=== PATIENT | female | born 1950 | race Caucasian/White ===

== ENCOUNTER 2017-12-02 16:10 | Emergency (ER) | payer OTHER, BC ==
[2017-12-02 16:20] VITALS: BMI 32.9
[2017-12-02] MEDS ORDERED: SODIUM CHLORIDE 1,000 ML IV STA (16:33)
[2017-12-02] MEDS ORDERED: ACETAMINOPHEN 1000 MG/100 ML VIAL (NON FORMULARY) IVPB ONE (16:33)
--- NOTE | 2017-12-02 16:47 | PDOC ---
History of Present Illness - General Chief Complaint: Pain Stated Complaint: ABD PAIN, DIARRHEA Time Seen by Provider: 12/02/17 16:15 - History of Present Illness Initial Comments: 12/02/17 16:47 "Patient is a 67 F, with PMHx of diverticulitis, chronic anemia, and hiatal hernia, who presents with abdominal pain and diarrhea. Patient states that she began to feel ill 5 days ago when she felt like she over ate. She reports vomiting once, which relieved her symptoms. This morning at around 4am she woke up with stomach cramps accompanied by multiple bouts of nonbloody diarrhea. Pt states that her symptoms are similar to what she experienced during a previous episode of her diverticulitis. She has an appointment tomorrow for a colonoscopy and endoscopy as part of her work up for iron deficiency anemia. She denies hematuria, hematochezia, or melena. PCP: Jamey Stevens " Past History - Past Medical History Allergies/Adverse Reactions: Allergies Allergy/AdvReac Type Severity Reaction Status Date / Time No Known Allergies Allergy Unverified 04/13/15 08:41 Anemia: Yes COPD: No GI Disorders: Yes (DIVERTICULITIS, GERD) - Surgical History Cholecystectomy: Yes - Suicide/Smoking/Psychosocial Hx Smoking History: Never smoked Hx Alcohol Use: (occasional) Review of Systems - Review of Systems Comments:: 12/02/17 16:49 "GENERAL/CONSTITUTIONAL: + fever (100.8) or chills. No weakness. HEAD, EYES, EARS, NOSE AND THROAT: No change in vision. No ear pain or discharge. No sore throat. CARDIOVASCULAR: No chest pain or shortness of breath. RESPIRATORY: No cough, wheezing, or hemoptysis. GASTROINTESTINAL: +LLQ pain, +vomiting (1x) , +diarrhea. No nausea. No constipation. GENITOURINARY: No dysuria, frequency, or change in urination. MUSCULOSKELETAL: No joint or muscle swelling or pain. No neck or back pain. SKIN: No rash NEUROLOGIC: No headache, vertigo, loss of consciousness, or change in strength/ sensation. ENDOCRINE: No increased thirst. No abnormal weight change. HEMATOLOGIC/LYMPHATIC: No anemia, easy bleeding, or history of blood clots. ALLERGIC/IMMUNOLOGIC: No hives or skin allergy. " *Physical Exam - Vital Signs Last Vital Signs Temp Pulse Resp BP Pulse Ox 100.8 F H 89 18 173/93 100 12/02/17 16:10 12/02/17 16:10 12/02/17 16:10 12/02/17 16:10 12/02/17 16:10 - Physical Exam Comments: 12/02/17 16:50 "GENERAL: Awake, alert, and fully oriented, in no acute distress HEAD: No signs of trauma EYES: PERRLA, EOMI, sclera anicteric, conjunctiva clear ENT: Auricles normal inspection, hearing grossly normal, nares patent, oropharynx clear without exudates. Moist mucosa NECK: Nontender, no stepoffs, Normal ROM, supple, no lymphadenopathy, JVD, or masses LUNGS: Breath sounds equal, clear to auscultation bilaterally. No wheezes, and no crackles HEART: Regular rate and rhythm, normal S1 and S2, no murmurs, rubs or gallops ABDOMEN: + LLQ tenderness. No guarding, no rebound. No masses EXTREMITIES: Normal range of motion, no edema. No clubbing or cyanosis. No cords, erythema, or tenderness NEUROLOGICAL: Cranial nerves II through XII intact. 5/5 strength and sensation in all extremities, Normal speech, normal gait, normal cerebellar function SKIN: Warm, Dry, normal turgor, no rashes or lesions noted. " ED Treatment Course - LABORATORY CBC & Chemistry Diagram: 12/02/17 16:40 12/02/17 16:40 - RADIOLOGY Radiology Studies Ordered: Category Date Time Status ABDOMEN & PELVIS CT WITH CONTR [CT] Stat CT Scan 12/02/17 16:29 Ordered Medical Decision Making - Medical Decision Making 12/02/17 16:34 67 F with LLQ pain, diarrhea. Found to have fever in ER 100.8. Likely diverticulitis. Also consider viral gastroenteritis. - Labs - CTAP - IVF, tylenol 12/02/17 18:55 CBC,CMP WBC 7.2 K/mm3 (4.0-10.8) 12/02/17 16:40 RBC 4.02 M/mm3 (3.60-5.2) 12/02/17 16:40 Hgb 11.7 GM/dl (10.7-15.3) 12/02/17 16:40 Hct 34.5 % (32.4-45.2) 12/02/17 16:40 MCV 85.8 fl (80-96) 12/02/17 16:40 MCH 29.0 pg (25.7-33.7) 12/02/17 16:40 MCHC 33.9 g/dl (32.0-36.0) 12/02/17 16:40 RDW 17.3 % (11.6-15.6) H 12/02/17 16:40 Plt Count 167 K/MM3 (134-434) 12/02/17 16:40 MPV 11.0 fl (7.5-11.1) 12/02/17 16:40 Neutrophils % 81.4 % (42.8-82.8) 12/02/17 16:40 Lymphocytes % 13.4 % (8-40) 12/02/17 16:40 Monocytes % 4.6 % (3.8-10.2) 12/02/17 16:40 Eosinophils % 0.3 % (0-4.5) 12/02/17 16:40 Basophils % 0.3 % (0-2.0) 12/02/17 16:40 Sodium 134 mmol/L (136-145) L 12/02/17 16:40 Potassium 3.5 mmol/L (3.5-5.1) 12/02/17 16:40 Chloride 101 mmol/L (98-107) 12/02/17 16:40 Carbon Dioxide 27 mmol/L (22-28) 12/02/17 16:40 Anion Gap 6 (8-16) L 12/02/17 16:40 BUN 8 mg/dl (7-18) 12/02/17 16:40 Creatinine 0.5 mg/dl (0.6-1.3) L 12/02/17 16:40 Creat Clearance w eGFR > 60 (>60) 12/02/17 16:40 Random Glucose 99 mg/dl (74-106) 12/02/17 16:40 Calcium 8.7 mg/dl (8.4-10.2) 12/02/17 16:40 Total Bilirubin 0.5 mg/dl (0.2-1.0) 12/02/17 16:40 AST 21 U/L (10-42) 12/02/17 16:40 ALT 17 U/L (10-40) 12/02/17 16:40 Alkaline Phosphatase 74 U/L (32-92) 12/02/17 16:40 Total Protein 6.4 g/dl (6.4-8.3) 12/02/17 16:40 Albumin 3.5 g/dl (3.5-5.0) 12/02/17 16:40 Lipase 122 U/L (73-393) 12/02/17 16:40 Pt signed out to oncoming attending at 7pm, pending CT results, repeat vitals, and re-evaluation. Case discussed in detail with oncoming Emergency Physician including history, physical exam and ancillary studies. Oncoming Emergency Physician has assumed care for the patient and will complete the evaluation and treatment. Patient is aware of the plan. *DC/Admit/Observation/Transfer - Discharge Dispostion Condition at time of disposition: Stable - Referrals Referrals: Jamey Stevens MD [Primary Care Provider] - - Patient Instructions - Post Discharge Activity
[2017-12-02] MEDS ORDERED: ACETAMINOPHEN INJECTION 100 ML IVPB ONE (16:49)
[2017-12-02 16:54] LABS: BASO % 0.3 % (0-2.0); EOS % 0.3 % (0-4.5); HEMATOCRIT 34.5 % (32.4-45.2); HEMOGLOBIN 11.7 GM/dl (10.7-15.3); LYMPH % 13.4 % (8-40); MCHC 33.9 g/dl (32.0-36.0); MEAN CELL VOLUME 85.8 fl (80-96); MONO % 4.6 % (3.8-10.2); NEUT % 81.4 % (42.8-82.8); PLATELET COUNT 167 K/MM3 (134-434); RBC 4.02 M/mm3 (3.60-5.2); RDW 17.3 % (11.6-15.6); WHITE BLOOD COUNT 7.2 K/mm3 (4.0-10.8)
[2017-12-02 17:05] LABS: ACTIVATED PTT 24.4 SECONDS (24.0-38.9)
[2017-12-02 17:07] LABS: ALBUMIN 3.5 g/dl (3.5-5.0); ALK PHOS 74 U/L (32-92); ANION GAP 6 (8-16); BLOOD UREA NITROGEN 8 mg/dl (7-18); CALCIUM 8.7 mg/dl (8.4-10.2); CHLORIDE 101 mmol/L (98-107); CO2 27 mmol/L (22-28); GLUCOSE,RANDOM 99 mg/dl (74-106); POTASSIUM 3.5 mmol/L (3.5-5.1); SGOT/AST 21 U/L (10-42); SGPT/ALT 17 U/L (10-40); SODIUM 134 mmol/L (136-145); TOT PROT 6.4 g/dl (6.4-8.3)
[2017-12-02 17:09] LABS: INR 1.1 (0.82-1.09); PROTHROMBIN TIME (PATIENT) 12.3 SEC (10.2-13.0)
[2017-12-02 17:17] LABS: BILIRUBIN,TOTAL 0.5 mg/dl (0.2-1.0); CREATININE 0.5 mg/dl (0.6-1.3)
[2017-12-02 17:38] LABS: URINE APPEARANCE Clear; URINE BILIRUBIN Negative (NEGATIVE); URINE GLUCOSE (UA) Negative (NEGATIVE); URINE KETONE Negative (NEGATIVE); URINE LEUK ESTERASE Negative (NEGATIVE); URINE NITRITE Negative (NEGATIVE); URINE PROTEIN Negative (NEGATIVE); URINE UROBILINOGEN 0.2 (0.2-1.0)
[2017-12-02 17:41] LABS: URINE BLOOD Trace-lysed (NEGATIVE); URINE COLOR YELLOW
[2017-12-02 18:03] LABS: URINE BACTERIA FEW /hpf (NEGATIVE); URINE WBC 0-2 (0-5)
--- NOTE | 2017-12-02 19:32 | PDOC ---
*Physical Exam - Vital Signs Last Vital Signs Temp Pulse Resp BP Pulse Ox 99.6 F 89 18 173/93 100 12/02/17 17:44 12/02/17 16:10 12/02/17 16:10 12/02/17 16:10 12/02/17 16:10 <Carlita Sanchez - Last Filed: 12/02/17 20:03> - Vital Signs Last Vital Signs Temp Pulse Resp BP Pulse Ox 99.6 F 89 18 173/93 100 12/02/17 17:44 12/02/17 16:10 12/02/17 16:10 12/02/17 16:10 12/02/17 16:10 <Riki Craias I - Last Filed: 12/02/17 20:18> ED Treatment Course - LABORATORY CBC & Chemistry Diagram: 12/02/17 16:40 12/02/17 16:40 - ADDITIONAL ORDERS Additional order review: Laboratory Results 12/02/17 12/02/17 12/02/17 17:34 16:40 16:40 PT with INR INR PTT (Actin FS) Sodium Potassium Chloride Carbon Dioxide Anion Gap BUN Creatinine Creat Clearance w eGFR Random Glucose Calcium Total Bilirubin AST ALT Alkaline Phosphatase Total Protein Albumin Lipase 122 Urine Color Yellow Urine Appearance Clear Urine pH 6.0 Ur Specific [place] 1.010 Urine Protein Negative Urine Glucose (UA) Negative Urine Ketones Negative Urine Blood Trace-lysed H Urine Nitrite Negative Urine Bilirubin Negative Urine Urobilinogen 0.2 Ur Leukocyte Esterase Negative Urine RBC 2-4 Urine WBC 0-2 Urine Bacteria Few Blood Type A POSITIVE Antibody Screen Negative 12/02/17 12/02/17 16:40 16:40 PT with INR 12.3 INR 1.10 PTT (Actin FS) 24.4 L Sodium 134 L Potassium 3.5 Chloride 101 Carbon Dioxide 27 Anion Gap 6 L BUN 8 Creatinine 0.5 L Creat Clearance w eGFR > 60 Random Glucose 99 Calcium 8.7 Total Bilirubin 0.5 AST 21 ALT 17 Alkaline Phosphatase 74 Total Protein 6.4 Albumin 3.5 Lipase Urine Color Urine Appearance Urine pH Ur Specific [place] Urine Protein Urine Glucose (UA) Urine Ketones Urine Blood Urine Nitrite Urine Bilirubin Urine Urobilinogen Ur Leukocyte Esterase Urine RBC Urine WBC Urine Bacteria Blood Type Antibody Screen 12/02/17 16:40 RBC 4.02 MCV 85.8 MCHC 33.9 RDW 17.3 H MPV 11.0 Neutrophils % 81.4 Lymphocytes % 13.4 Monocytes % 4.6 Eosinophils % 0.3 Basophils % 0.3 - RADIOLOGY Radiograph Interpretation: Abdomen/Pelvis CT Impression: Acute sigmoid diverticulitis is noted Several small hypodense foci are noted within the inflamed sigmoid wall which may represent intramural abscesses. No pericolonic abscess is visualized. Status post cholecystectomy. Large hiatal hernia. Small umbilical hernia containing fat only. Reported by: Qamar Rice MD 12/02/171937 - Medications Given in the ED: ED Medications Discontinued Medications Generic Name Dose Route Start Last Admin Trade Name Freq PRN Reason Stop Dose Admin Acetaminophen 1,000 mg 12/02/17 16:33 12/02/17 16:55 Ofirmev Injection - IVPB 12/02/17 16:34 1,000 mg ONCE ONE Administration Sodium Chloride 1,000 mls @ 1,000 mls/hr 12/02/17 16:33 12/02/17 16:45 Normal Saline - IV 12/02/17 17:32 1,000 mls/hr ASDIR STA Administration <Carlita Sanchez - Last Filed: 12/02/17 20:03> - LABORATORY CBC & Chemistry Diagram: 12/02/17 16:40 12/02/17 16:40 - ADDITIONAL ORDERS Additional order review: Laboratory Results 12/02/17 12/02/17 12/02/17 17:34 16:40 16:40 PT with INR INR PTT (Actin FS) Sodium Potassium Chloride Carbon Dioxide Anion Gap BUN Creatinine Creat Clearance w eGFR Random Glucose Calcium Total Bilirubin AST ALT Alkaline Phosphatase Total Protein Albumin Lipase 122 Urine Color Yellow Urine Appearance Clear Urine pH 6.0 Ur Specific [place] 1.010 Urine Protein Negative Urine Glucose (UA) Negative Urine Ketones Negative Urine Blood Trace-lysed H Urine Nitrite Negative Urine Bilirubin Negative Urine Urobilinogen 0.2 Ur Leukocyte Esterase Negative Urine RBC 2-4 Urine WBC 0-2 Urine Bacteria Few Blood Type A POSITIVE Antibody Screen Negative 12/02/17 12/02/17 16:40 16:40 PT with INR 12.3 INR 1.10 PTT (Actin FS) 24.4 L Sodium 134 L Potassium 3.5 Chloride 101 Carbon Dioxide 27 Anion Gap 6 L BUN 8 Creatinine 0.5 L Creat Clearance w eGFR > 60 Random Glucose 99 Calcium 8.7 Total Bilirubin 0.5 AST 21 ALT 17 Alkaline Phosphatase 74 Total Protein 6.4 Albumin 3.5 Lipase Urine Color Urine Appearance Urine pH Ur Specific [place] Urine Protein Urine Glucose (UA) Urine Ketones Urine Blood Urine Nitrite Urine Bilirubin Urine Urobilinogen Ur Leukocyte Esterase Urine RBC Urine WBC Urine Bacteria Blood Type Antibody Screen 12/02/17 16:40 RBC 4.02 MCV 85.8 MCHC 33.9 RDW 17.3 H MPV 11.0 Neutrophils % 81.4 Lymphocytes % 13.4 Monocytes % 4.6 Eosinophils % 0.3 Basophils % 0.3 - Medications Given in the ED: ED Medications Discontinued Medications Generic Name Dose Route Start Last Admin Trade Name Freq PRN Reason Stop Dose Admin Acetaminophen 1,000 mg 12/02/17 16:33 12/02/17 16:55 Ofirmev Injection - IVPB 12/02/17 16:34 1,000 mg ONCE ONE Administration Sodium Chloride 1,000 mls @ 1,000 mls/hr 12/02/17 16:33 12/02/17 16:45 Normal Saline - IV 12/02/17 17:32 1,000 mls/hr ASDIR STA Administration <Riki Carias I - Last Filed: 12/02/17 20:18> Progress Note - Progress Note Progress Note: Care of this patient was transferred to or from Dr. Palencia at 1900 hrs. This is a 67-year-old female who has a history significant for diverticulitis. Patient comes in complaining of left lower quadrant pain with some diarrhea. Patient said pain is similar to what she's had in the past with her diverticulitis. Patient was noted to have a low-grade fever here in the emergency room Patient's CAT scan of her abdomen is still pending however the rest of her workup is back including a normal white count with no left shift and normal chemistries Well reassessed and follow-up on the CAT scan. 20:15 Reassessment patient remains unchanged. Patient was asked if she would like some pain medication which she does not feel she needs at this point. Patient's CAT scan came back it does show acute diverticulitis as well as several small intramural abscesses. There is no evidence of perforation. Patient has a normal white count Patient is able to tolerate by mouth's Discussed with the surgeon Dr. Diaz who recommends that the patient to be given IV antibiotics and discharged home on by mouth antibiotics and follow up with her GI. Patient does have a GI doctor and was scheduled for a colonoscopy for tomorrow Patient given IV Levaquin and Flagyl here in the emergency room and will be discharged on by mouth Levaquin and Flagyl <Riki Carias I - Last Filed: 12/02/17 20:18> *DC/Admit/Observation/Transfer <LauraCarlita - Last Filed: 12/02/17 20:03> - Discharge Dispostion Admit: No <Riki Carias I - Last Filed: 12/02/17 20:18> Diagnosis at time of Disposition: Diverticulitis - Discharge Dispostion Disposition: HOME Condition at time of disposition: Stable - Referrals Referrals: Jamey Stevens MD [Primary Care Provider] - - Patient Instructions Printed Discharge Instructions: DI for Diverticulitis Additional Instructions: Take Levaquin 1 tablet a day for the next 10 days. Take Flagyl 1 tablet twice a day for the next 10 days. A diverticulitis diet is recommend as part of a short-term treatment plan for acute diverticulitis. Diverticula are small, bulging pouches that can form in the lining of the digestive system. They're found most often in the lower part of the large intestine (colon). This condition is called diverticulosis. In some cases, one or more of the pouches become inflamed or infected. This is known as diverticulitis. Mild cases of diverticulitis are usually treated with antibiotics and a diverticulitis diet, which includes clear liquids and low-fiber foods. More- severe cases typically require hospitalization. A diverticulitis diet is a temporary measure to give your digestive system a chance to rest. Oral intake is usually reduced until bleeding and diarrhea subside. A diverticulitis diet starts with only clear liquids for a few days. Examples of items allowed on a clear liquid diet include: Broth Fruit juices without pulp, such as apple juice Ice chips Ice pops without bits of fruit or fruit pulp Gelatin Water Tea or coffee without cream As you start feeling better, your doctor will recommend that you slowly add low- fiber foods. Examples of low-fiber foods include: Canned or cooked fruits without skin or seeds Canned or cooked vegetables such as green beans, carrots and potatoes (without the skin) Eggs, fish and poultry Refined white bread Fruit and vegetable juice with no pulp Low-fiber cereals Milk, yogurt and cheese eat yogurt at least once a day as it will help replenish the healthy bacteria in your intestines that the antibiotics kill. White rice, pasta and noodles You should feel better within two or three days of starting the diet and antibiotics. If you haven't started feeling better by then, call your doctor. Also contact your doctor if: You develop a fever Your abdominal pain is worsening You're unable to keep clear liquids down These may indicate a complication that requires hospitalization. The diverticulitis diet has few risks. However, continuing a clear liquid diet for more than a few days can lead to weakness and other complications, since it doesn't provide enough of the nutrients your body needs. For this reason, I recommend you to transition to the low fiber diet as soon as you can tolerate it and then back to a normal diet once you finish the antibiotics. - Post Discharge Activity
[2017-12-02 21:24] VITALS: BP 147/65; PULSE 71; TEMP 98.5
== END 2017-12-02 21:25 | disposition home or self-care (01) ==
LOC: FER 16:10
PROC: 3E03329 Introduction of Other Anti-infective into Peripheral Vein, Percutaneous Approach (ICD-10-PCS; principal; 2017-12-02)
PROC: 3E033GC Introduction of Other Therapeutic Substance into Peripheral Vein, Percutaneous Approach (ICD-10-PCS; 2017-12-02)
DX: K57.92 Diverticulitis of intestine, part unspecified, without perforation or abscess without bleeding (principal); D64.9 Anemia, unspecified; K44.9 Diaphragmatic hernia without obstruction or gangrene; K21.9 Gastro-esophageal reflux disease without esophagitis
CPT/HCPCS: 36415; 74177-TC; 80053; 81003; 81015; 83690; 85025; 85610; 85730; 86850; 86900; 86901; 96361; 96365; 96368; 99285-25

== ENCOUNTER 2019-12-02 15:00 | Emergency (ER) | payer OTHER, BC ==
--- NOTE | 2019-12-02 15:04 | PDOC ---
History of Present Illness - General Chief Complaint: Pain Stated Complaint: ABD PAIN History Source: Patient Exam Limitations: No Limitations - History of Present Illness Initial Comments: 69 yo F with a hx of diverticulitis and chronic anemia presents to the emergency department with LLQ pain that has been ongoing since yesterday. Per the patient, she was cooking in her kitchen when she felt a sudden onset of LLQ pain consistent with her previous episode of diverticulitis in 2018. The patient describes the pain as a dull ache, intermittent in duration, radiates to the lower left flank, and does not have aggravating or relieving factors. The patient endorses nausea with dry heaving vomiting without production. Endorses subjective fevers. Endorses constipation for the past 3 days. Allergies: NKDA Past History - Past Medical History Allergies/Adverse Reactions: Allergies Allergy/AdvReac Type Severity Reaction Status Date / Time No Known Allergies Allergy Verified 12/02/19 15:03 Home Medications: Ambulatory Orders NK [No Known Home Medication] 12/02/19 Anemia: Yes COPD: No GI Disorders: Yes (DIVERTICULITIS, GERD) - Surgical History Cholecystectomy: Yes - Psycho Social/Smoking Cessation Hx Smoking History: Never smoked Have you smoked in the past 12 months: No Hx Alcohol Use: (occasional) Drug/Substance Use Hx: No Substance Use Type: None Review of Systems - Review of Systems Able to Perform ROS?: Yes Is the patient limited Azeri proficient: No Constitutional: Yes: Fever. No: Chills, Diaphoresis, Weakness HEENTM: No: Eye Pain, Ear Pain, Nose Pain, Throat Pain, Mouth Pain Respiratory: No: Cough, Shortness of Breath, Hemoptysis Cardiac (ROS): No: Chest Pain, Lightheadedness, Palpitations, Chest Tightness ABD/GI: Yes: Constipated, Nausea, Vomiting, Abdominal cramping. No: Diarrhea, Rectal Bleeding, Tarry Stools : No: Burning, Dysuria, Hematuria, Incontinence Musculoskeletal: No: Back Pain, Muscle Pain, Neck Pain Integumentary: No: Bruising, Flushing, Lesions, Rash Neurological: No: Headache, Numbness, Tingling, Tremors Psychiatric: No: Change in Appetite Endocrine: No: Unexplained Weight Loss Hematologic/Lymphatic: No: Anemia *Physical Exam - Physical Exam General Appearance: Yes: Nourished, Appropriately Dressed. No: Apparent Distress, Intoxicated HEENT: positive: EOMI, AGGIE, Normal ENT Inspection, Normal Voice, Symmetrical, TMs Normal, Pharynx Normal, Hearing Grossly Normal. negative: Pale Conjunctivae , Scleral Icterus (R), Scleral Icterus (L), Muffled/Hoarse voice, Pharyngeal Erythema, Tonsillar Exudate, Tonsillar Erythema, Rhinorrhea, Sinus Tenderness, Excessive drooling Neck: positive: Trachea midline, Supple. negative: Tender, Lymphadenopathy (R) , Lymphadenopathy (L), Tender lateral, Tender midline Respiratory/Chest: positive: Lungs Clear, Normal Breath Sounds. negative: Chest Tender, Respiratory Distress, Accessory Muscle Use, Rales, Rhonchi, Stridor, Wheezing, Hyperresonant Cardiovascular: positive: Regular Rhythm, Regular Rate, S1, S2. negative: Systolic Murmur Gastrointestinal/Abdominal: positive: Normal Bowel Sounds, Tender (LLQ), Flat, Soft. negative: Protuberent, Distended, Guarding, Rebound Lymphatic: negative: Adenopathy Musculoskeletal: positive: Normal Inspection. negative: CVA Tenderness, Vertebral Tenderness Extremity: positive: Normal Capillary Refill, Normal Inspection, Normal Range of Motion. negative: Tender, Cyanosis, Swelling, Calf Tenderness, Erythema Integumentary: positive: Normal Color, Dry, Warm. negative: Clammy, Diaphoresis , Swelling, Ecchymosis Neurologic: positive: microstrategy bi developer II-XII NML intact, Fully Oriented, Alert, Normal Mood/ Affect, Normal Response, Motor Strength 5/5. negative: EOM Palsy, Facial Droop , Sensory Deficit, Finger to Nose ED Treatment Course - LABORATORY CBC & Chemistry Diagram: 12/02/19 15:30 12/02/19 16:10 Medical Decision Making - Medical Decision Making 69 yo F with a hx of diverticulitis and chronic anemia presents to the emergency department with LLQ pain that has been ongoing since yesterday. Initial vitals Initial Vital Signs Temp Pulse Resp BP Pulse Ox 99.7 F H 72 18 162/73 98 12/02/19 15:00 12/02/19 15:00 12/02/19 15:00 12/02/19 15:00 12/02/19 15:00 Work up: ddx: patient presents with LLQ with mild tenderness currently afebrile and per the patient is similar in pain to her previous episodes of diverticulitis. Will obtain cbc, cmp, lactic acid, ua, urine culture ddx: diverticulitis vs colitis vs UTI vs nephrolithiasis vs msk pain Laboratory Tests 12/02/19 12/02/19 12/02/19 15:30 15:30 15:30 WBC 7.8 RBC 4.58 Hgb 14.1 Hct 42.0 D MCV 91.7 MCH 30.7 D MCHC 33.5 RDW 11.9 D Plt Count 213 MPV 12.1 H Absolute Neuts (auto) 5.9 Neutrophils % 76.2 Lymphocytes % 17.7 Monocytes % 5.4 Eosinophils % 0.2 Basophils % 0.5 PT with INR 12.5 INR 1.12 Sodium Potassium Chloride Carbon Dioxide Anion Gap BUN Creatinine Est GFR (CKD-EPI)AfAm Est GFR (CKD-EPI)NonAf Random Glucose Lactic Acid 1.5 Calcium Total Bilirubin AST ALT Alkaline Phosphatase Total Protein Albumin Urine Color Urine Appearance Urine pH Urine Protein Urine Glucose (UA) Urine Ketones Urine Blood Urine Nitrite Urine Bilirubin Urine Urobilinogen Ur Leukocyte Esterase Urine RBC Urine WBC Ur Transition Epith Cell Urine Bacteria 12/02/19 12/02/19 15:30 16:10 WBC RBC Hgb Hct MCV MCH MCHC RDW Plt Count MPV Absolute Neuts (auto) Neutrophils % Lymphocytes % Monocytes % Eosinophils % Basophils % PT with INR INR Sodium 135 L Potassium 4.1 Chloride 103 Carbon Dioxide 27 Anion Gap 5 L BUN 12.0 Creatinine 0.8 Est GFR (CKD-EPI)AfAm 85.97 Est GFR (CKD-EPI)NonAf 74.17 Random Glucose 106 Lactic Acid Calcium 8.9 Total Bilirubin 1.2 H AST 19 ALT 20 Alkaline Phosphatase 91 Total Protein 6.7 Albumin 3.8 Urine Color Yellow Urine Appearance Clear Urine pH 7.0 Urine Protein Negative Urine Glucose (UA) Negative Urine Ketones Negative Urine Blood 2+ H Urine Nitrite Negative Urine Bilirubin Negative Urine Urobilinogen 0.2 Ur Leukocyte Esterase 1+ Urine RBC 20-30 Urine WBC 10-20 Ur Transition Epith Cell Few Urine Bacteria Moderate Patient denies dysuria, increased urinary frequency, urinary urgency, burning in urine, and hematuria. UA shows increased wbc 10-20 with moderate bacteria with 2+ blood with positive leuk est with negative nitrite. Patient is asymptomatic, likely asymptomatic bacturia, however a culture will be drawn to determine presence of infection. Patient likely is having nephrolithiasis. A spiral renal stone CT was ordered. CT shows 2 mm at the UVJ with mild hydro on the left kidney. Patient is afebrile, without white count, negative lactic acid, and with asymptomatic bacturia. Patient was advised to treat pain with ibuprofen and to follow up with the urologist within 1 week after discharge for follow up. The patient was advised to return to the emergency department if she develops fevers , dysuria, or ascending flank pain. Patient agrees to this plan. Pain was resolved with 1 gram of tylenol. Patient was discharged. Pending culture. Discharge - Discharge Information Problems reviewed: Yes Clinical Impression/Diagnosis: Kidney stone Condition: Stable Disposition: HOME - Admission No - Follow up/Referral Referrals: Salina Arita MD [Primary Care Provider] - Kayden Khan MD [Staff Physician] - - Patient Discharge Instructions Patient Printed Discharge Instructions: Kidney Stones -- Adult Additional Instructions: You were seen for abdominal pain that was a kidney stone Please follow up with the urologist within 1 week after discharge Please use motrin for pain as directed on label We will call if you culture indicates you have an infection Please return to the emergency department if you have worsening symptoms or new concerning symptoms such as burning urination, pain in the left flank, and fevers., Thank you. - Post Discharge Activity
[2019-12-02 15:06] VITALS: BP 162/73; PULSE 72; BMI 29.2
[2019-12-02] MEDS ORDERED: ACETAMINOPHEN 1000 MG/100 ML VIAL (NON FORMULARY) IVPB ONE (15:27)
[2019-12-02] MEDS ORDERED: SODIUM CHLORIDE 1,000 ML IV STA (15:27)
[2019-12-02] MEDS ORDERED: ACETAMINOPHEN INJECTION 100 ML IVPB ONE (15:42)
[2019-12-02 15:53] LABS: INR 1.12 (0.82-1.09); PROTHROMBIN TIME (PATIENT) 12.5 SEC (10.2-13.0)
[2019-12-02 15:54] LABS: BASO % 0.5 % (0-2.0); EOS % 0.2 % (0-4.5); HEMOGLOBIN 14.1 GM/dl (10.7-15.3); LYMPH % 17.7 % (8-40); MCH 30.7 pg (25.7-33.7); MCHC 33.5 g/dl (32.0-36.0); MEAN CELL VOLUME 91.7 fl (80-96); MEAN PLT VOLUME 12.1 fl (7.5-11.1); MONO % 5.4 % (3.8-10.2); NEUT % 76.2 % (42.8-82.8); PLATELET COUNT 213 K/MM3 (134-434); RBC 4.58 M/mm3 (3.60-5.2); RDW 11.9 % (11.6-15.6); WHITE BLOOD COUNT 7.8 K/mm3 (4.0-10.8)
[2019-12-02 16:30] LABS: EPITHELIAL CELLS FEW /hpf
[2019-12-02 16:31] LABS: ALBUMIN 3.8 g/dl (3.4-5.0); BILIRUBIN,TOTAL 1.2 mg/dl (0.2-1); CALCIUM 8.9 mg/dl (8.5-10); CREATININE 0.8 mg/dl (0.55-1.3); POTASSIUM 4.1 mmol/L (3.5-5.1); TOT PROT 6.7 g/dl (6.4-8.2)
--- NOTE | 2019-12-02 17:12 | PDOC ---
Attending Attestation - Resident Resident Name: Tk Galindo - HPI HPI: 12/02/19 17:08 Left flank and left lower quadrant pain for 2 days. Nausea and retching yesterday. Pain is intermittent. Normal bowel movements. No urinary tract symptoms such as dysuria frequency urgency hesitancy or hematuria. No vaginal bleeding or discharge. History of one episode of diverticulitis several years ago, managed medically. - Physicial Exam PE: 12/02/19 17:09 Physical exam: No pain at present. Afebrile, vital signs normal No pallor or icterus. HEENT normal Neck supple without bruit mass or nodes Chest clear CV regular without murmur rub or gallop Abdomen nondistended, bowel sounds normal. Soft without mass tenderness organomegaly. Specifically, there is no appreciable tenderness in the left lower quadrant or pelvic region that would be expected with diverticulitis Neurological intact Impression: Left lower quadrant/left pelvic pain, rule out occult diverticulitis , colitis, gynecologic/ovarian disease, UTI, renal colic Plan: CBC, chemistries, urinalysis, further evaluation and imaging depending on results. Urine with blood. CBC and chemistries without significant abnormalities. Specifically, normal white blood count. Normal differential. This together with benign abdominal exam suggests renal colic, especially with the nausea and retching. CT pending. - Medical Decision Making 12/02/19 19:04 Assessment: CT is positive for stone at the UV junction, mild hydronephrosis. No definite signs of UTI Plan: Fluids and analgesics, check culture results in 24 to 48 hours, follow-up urologist. Return to ER if pain uncontrolled. Fully ambulatory and in no significant pain or other distress at discharge to follow-up as directed 12/02/19 19:08
[2019-12-02 19:07] VITALS: TEMP 99
--- NOTE | 2019-12-04 12:21 | PDOC ---
Patient Follow-up (Call Back) - Post ED Follow - Up Condition at time of discharge: Stable Disposition at time of original discharge: HOME - Disposition Additional Instructions/Notes: Pt called to request her UCx results. Counseled patient that the culture was negative.
== END 2019-12-02 19:10 | disposition home or self-care (01) ==
LOC: FER 15:00
PROC: 3E033NZ Introduction of Analgesics, Hypnotics, Sedatives into Peripheral Vein, Percutaneous Approach (ICD-10-PCS; principal; 2019-12-02)
DX: N20.0 Calculus of kidney (principal)
CPT/HCPCS: 36415; 74176-TC; 80053; 81003; 81015; 83605; 85025; 85610; 87086; 99285-25; J0131; J7030

== ENCOUNTER 2023-04-17 21:27 | Emergency (ER) | payer OTHER, BC ==
[2023-04-17 22:19] VITALS: BP 135/85; PULSE 81; RESP 17; TEMP 99.2; BMI 28.5
[2023-04-17 22:26] LABS: HEMATOCRIT 41.8 % (32.4-45.2); HEMOGLOBIN 14.2 G/dL (10.7-15.3); MCH 31.2 pg (25.7-33.7); MEAN CELL VOLUME 91.6 fl (80-96); MEAN PLT VOLUME 11.3 fl (7.5-11.1); PLATELET COUNT 172.9 10^3/uL (134-434); RBC 4.56 10^6/uL (3.60-5.2); RDW 13.4 % (11.6-15.6); WHITE BLOOD COUNT 8.7 10^3/uL (4.0-10.8)
[2023-04-17 22:40] LABS: EPITHELIAL CELLS FEW /hpf
[2023-04-17 22:53] LABS: PLATELET ESTIMATE ADEQUATE
[2023-04-17] MEDS ORDERED: AMOX TR/POT CLAV 875MG/125MG TABLETS (FP) PO ONE (23:01)
[2023-04-17 23:09] LABS: ALBUMIN 4.1 g/dl (3.4-5.0); BILIRUBIN,TOTAL 0.9 mg/dl (0.2-1); BLOOD UREA NITROGEN 14.4 mg/dl (7-18); CREATININE 0.7 mg/dl (0.6-1.3); POTASSIUM 3.7 mmol/L (3.5-5.1); SGOT/AST 11.6 U/L (15-37); TOT PROT 6.4 g/dl (6.4-8.2)
[2023-04-17] MEDS ORDERED: AMOX TR/POT CLAV 875MG/125MG TABLETS (FP) ONE (23:24)
[2023-04-17 23:42] LABS: BLOOD UREA NITROGEN 14.4 mg/dl (7-18); CREATININE 0.7 mg/dl (0.6-1.3); POTASSIUM 3.7 mmol/L (3.5-5.1)
[2023-04-17 23:43] LABS: ALBUMIN 4.1 g/dl (3.4-5.0); BILIRUBIN,TOTAL 0.9 mg/dl (0.2-1); SGOT/AST 11.6 U/L (15-37); TOT PROT 6.4 g/dl (6.4-8.2)
== END 2023-04-17 23:34 | disposition home or self-care (01) ==
LOC: FER 21:27
DX: N39.0 Urinary tract infection, site not specified (principal); R10.30 Lower abdominal pain, unspecified; R35.0 Frequency of micturition
CPT/HCPCS: 36415; 80053; 81003; 81015; 85027; 87086; 99283-25

== ENCOUNTER 2023-05-20 19:00 | Emergency (ER) | payer OTHER, BC ==
[2023-05-20 19:26] VITALS: BP 140/84; PULSE 69; RESP 16; BMI 28.1
[2023-05-20 19:44] LABS: EPITHELIAL CELLS FEW /hpf
[2023-05-20 20:42] LABS: HEMOGLOBIN 13.9 G/dL (10.7-15.3); MCH 30.6 pg (25.7-33.7); MEAN CELL VOLUME 90.2 fl (80-96); MEAN PLT VOLUME 9.5 fl (7.5-11.1); PLATELET COUNT 176.6 10^3/uL (134-434); RBC 4.55 10^6/uL (3.60-5.2); RDW 13.6 % (11.6-15.6); WHITE BLOOD COUNT 8.5 10^3/uL (4.0-10.8)
[2023-05-20 20:59] LABS: ALBUMIN 4.2 g/dl (3.4-5.0); BLOOD UREA NITROGEN 13.9 mg/dl (7-18); CALCIUM 8.9 mg/dl (8.5-10.1); CREATININE 0.6 mg/dl (0.6-1.3); POTASSIUM 3.9 mmol/L (3.5-5.1); SGOT/AST 13.3 U/L (15-37); SGPT/ALT 13.4 U/L (7-52)
[2023-05-20 21:28] LABS: PLATELET ESTIMATE ADEQUATE
[2023-05-20 22:48] VITALS: TEMP 99.1
[2023-05-21] MEDS ORDERED: metroNIDAZOLE 500 MG TABLET PO ONE (00:19)
[2023-05-21] MEDS ORDERED: metroNIDAZOLE 250 MG TABLET ONE (00:20)
== END 2023-05-21 00:27 | disposition home or self-care (01) ==
LOC: FER 19:00
DX: N39.0 Urinary tract infection, site not specified (principal); K57.92 Diverticulitis of intestine, part unspecified, without perforation or abscess without bleeding; R10.32 Left lower quadrant pain
CPT/HCPCS: 36415; 74176-TC; 80053; 81003; 81015; 85027; 87040; 87086; 99284-25

== ENCOUNTER 2024-12-22 19:43 | Emergency (ER) | payer OTHER, BC ==
[2024-12-22 19:50] VITALS: BP 161/87; PULSE 64; RESP 16; TEMP 99.5; BMI 28.3
[2024-12-22] MEDS: SODIUM CHLORIDE 1,000 ML IV ONE (20:47)
[2024-12-22 20:51] LABS: HEMATOCRIT 39.2 % (32.4-45.2); HEMOGLOBIN 13.5 G/dL (10.7-15.3); MCH 30.9 pg (25.7-33.7); MCHC 34.3 g/dl (32.0-36.0); MEAN CELL VOLUME 90.1 fl (80-96); MEAN PLT VOLUME 10.7 fl (7.5-11.1); PLATELET COUNT 154.4 10^3/uL (134-434); RBC 4.35 10^6/uL (3.60-5.2); RDW 13.2 % (11.6-15.6); WHITE BLOOD COUNT 5.8 10^3/uL (4.0-10.8)
[2024-12-22 21:00] LABS: ALBUMIN 4.2 g/dl (3.4-5.0); BILIRUBIN,TOTAL 0.9 mg/dl (0.2-1); CREATININE 0.5 mg/dl (0.6-1.3); MAGNESIUM 1.9 mg/dL (1.8-2.4); POTASSIUM 3.8 mmol/L (3.5-5.1); TOT PROT 6.7 g/dl (6.4-8.2)
[2024-12-22] MEDS ORDERED: AZITHROMYCIN 500 MG VIAL IVPB ONE (21:43)
[2024-12-22] MEDS ORDERED: cefTRIAXone SODIUM 1 GM VIAL ONE (21:43)
[2024-12-22 21:48] LABS: VENOUS O2 SATURATION 83.1 % (70-80); VENOUS PCO2 42.9 mmHg (38-52); VENOUS PH 7.401 (7.310-7.410)
[2024-12-22] MEDS: CEFTRIAXONE 1,000 MG in DEXTROSE 5%-WATER - 50 ML IVPB ONE (21:50)
[2024-12-22] MEDS: POTASSIUM CHLORIDE TABS 20 MEQ TABLET.ER (FP) PO ONE (21:50)
[2024-12-22] MEDS ORDERED: POTASSIUM CHLORIDE TABS 20 MEQ TABLET.ER (FP) PO ONE (21:51)
[2024-12-22] MEDS: AZITHROMYCIN IVPB 500 MG in DEXTROSE 5%-WATER - 250 ML IVPB ONE (22:50)
== END 2024-12-23 00:11 | disposition home or self-care (01) ==
LOC: FER 19:43
DX: J18.9 Pneumonia, unspecified organism (principal); R05.9 Cough, unspecified; R50.9 Fever, unspecified
CPT/HCPCS: 36415; 71046-TC-FY; 80053; 82803; 83605; 83735; 85027; 87040; 93005; 96365; 96375; 99285-25